=== PATIENT | female | born 1950 | race Caucasian/White ===

== ENCOUNTER → 2019-03-10 | Outpatient (CLI) | payer MEDICARE, OTHER ==
--- NOTE | 2019-03-11 11:04 | CRLCT ---
INDICATION: Left-sided pulmonary nodule and COPD. TECHNIQUE: Noncontrast 3 mm axial imaging has been performed through the chest without contrast. Sagittal and coronal reconstructions have been obtained. FINDINGS: Soft tissue windows demonstrate mildly prominent right paratracheal lymph node with a fatty hilum. This is seen on image #41, series 2. This measures 1.5 x 0.8 cm. No other significant prominent lymph nodes are noted. Hilar regions appear within normal limits by noncontrast technique. Trace amount of pericardial fluid noted. No significant pleural fluid is seen. Axillary regions demonstrate small lymph nodes without significant lymphadenopathy. Lung windows demonstrate mild to moderate emphysematous changes superiorly. Irregular nodular density with spiculation and retraction of the major fissure is identified in the posterior left upper lobe. This is best seen on image #43, series 3 and image 44, series 4. This is suspicious for a early lung cancer. This measures 9 x 11 mm. 4 mm pulmonary nodule anteriorly on the right is identified in the right upper lobe. Other scattered tiny pulmonary nodules are noted. No acute infiltrate is seen. There is a area of ill-defined ground-glass density measuring 5-6 millimeters in the right middle lobe on image number 53, series 3 and image 80 series 7. Upper abdomen demonstrates postsurgical change from cholecystectomy. IMPRESSION: 1. Irregular 1 cm spiculated nodule posterior left upper lobe suspicious for early primary lung cancer. There is some tenting of the adjacent major fissure. Recommend biopsy and/or PET-CT for further assessment. 2. Mildly prominent right paratracheal lymph node noted. 3. Other small pulmonary nodules identified up to 4 mm in the right upper lobe. 4. 5-6 millimeter early ground-glass density right middle lobe. This should be followed by CT. 5. Emphysematous changes noted. No acute infiltrate is seen. Dictated by Lane Arellano MD @ 03/11/2019 11:03:27 AM Please note that all CT scans at this facility use dose modulation, iterative reconstruction, and/or weight-based dosing when appropriate to reduce radiation dose to as low as reasonably achievable. Dictated by: Lane Arellano MD @ 03/11/2019 11:03:34 (Electronically Signed)
== END | disposition home or self-care (01) ==
LOC: JP.CT 10:43
PROVIDERS: ATTEND Nurse Practitioner Family
DX: R91.1 Solitary pulmonary nodule (principal); R59.0 Localized enlarged lymph nodes; R91.8 Other nonspecific abnormal finding of lung field; J44.9 Chronic obstructive pulmonary disease, unspecified
CPT/HCPCS: 71250

== ENCOUNTER 2021-08-22 07:02 | Day surgery (SDC) | payer MEDICARE, OTHER ==
[2021-08-22] MEDS ORDERED: Propofol 200 MG/20 ML SDV ONE (07:27)
[2021-08-22] MEDS ORDERED: fentaNYL 100 MCG/2 ML SDV ONE (07:27)
[2021-08-22] MEDS ORDERED: Midazolam 1 MG/ML 2 ML SDV ONE (07:27)
[2021-08-22] MEDS ORDERED: Sodium Chloride 0.9% 1,000 ML IV SCH (07:30)
[2021-08-22 10:43] VITALS: BP 130/48; PULSE 78
--- NOTE | 2021-08-23 08:22 | OR ---
DATE OF PROCEDURE: 08/22/2021 SURGEON: Obed Pavon MD PROCEDURE: Colonoscopy. FINDINGS: 1. Sigmoid colon polyp, approximately 5 mm, completely removed using cold biopsy forceps. 2. Rectal polyp, approximately 5 mm, completely removed using cold biopsy forceps. COMPLICATIONS: None. FLOOR STEWARD/STEWARDESS: None. ANESTHESIA: MAC. PREOPERATIVE DIAGNOSIS: Screening colonoscopy. POSTOPERATIVE DIAGNOSIS: Screening colonoscopy. RISKS: Risks, benefits, alternatives, and limitations including, but not limited to infection, bleeding, perforation, false positives and false negatives were explained to the patient who wished to proceed. PROCEDURE IN DETAIL: The patient was placed in left lateral decubitus position. Digital rectal exam was performed without abnormality. Scope was introduced and advanced atraumatically to the ileocecal valve. A photo was taken of the appendiceal orifice. Scope was brought back to the ascending, transverse, descending colon, and retroflexed. No evidence of old or new blood. No masses. No diverticulosis. The aforementioned polyps were all identified and completely removed. No abnormalities on retroflexion. Greater than 8 minutes was spent removing the scope. The prep was moderately acceptable, approximately 85% to 90% of the luminal surface could be seen. Obed Pavon MD /[id number]
== END 2021-08-22 10:51 | disposition home or self-care (01) ==
LOC: JP.SDS 07:02
PROVIDERS: ATTEND Surgery
DX: Z12.11 Encounter for screening for malignant neoplasm of colon (principal); K63.5 Polyp of colon; K62.1 Rectal polyp; J44.9 Chronic obstructive pulmonary disease, unspecified; I10 Essential (primary) hypertension; F17.200 Nicotine dependence, unspecified, uncomplicated
CPT/HCPCS: 45380; 88305; J2250; J2704; J3010; J7030

== ENCOUNTER 2022-11-07 17:17 | Inpatient (IN) | payer MEDICARE, OTHER ==
[2022-11-07] MEDS ORDERED: Sodium Chloride 0.9% 10 ML Syringe FLUSH PRN (17:44)
[2022-11-07] MEDS ORDERED: Albuterol/Ipratropium 3.0-0.5 MG/3 ML Neb Soln NEB ONE (17:45)
[2022-11-07] MEDS ORDERED: methylPREDNISolone Sodium Succinate 125 MG/2 ML SDV IVPUSH ONE (17:45)
[2022-11-07] MEDS ORDERED: diphenhydrAMINE 50 MG/ML SDV IVPUSH ONE (18:11)
[2022-11-07] MEDS ORDERED: Acetaminophen 500 MG Tab PO ONE (18:18)
[2022-11-07 18:30] LABS: CORONAVIRUS COVID-19 NAA NEGATIVE (NEGATIVE)
[2022-11-07] MEDS ORDERED: Doxycycline 100 MG in Sodium Chloride 0.9% 100 ML IV ONE (19:18)
[2022-11-07] MEDS ORDERED: Ondansetron 4 MG Tab.DIS PO PRN (21:24)
[2022-11-07] MEDS ORDERED: Magnesium Hydroxide 400 MG/5 ML Susp 30 ML Cup PO PRN (21:24)
[2022-11-07] MEDS ORDERED: Albuterol 0.083% 2.5 MG/3 ML Neb Soln NEB PRN (21:24)
[2022-11-07] MEDS ORDERED: Ondansetron 4 MG/2 ML SDV IV PRN (21:24)
[2022-11-07] MEDS ORDERED: Melatonin 3 MG Tab PO PRN (21:24)
[2022-11-07] MEDS ORDERED: Nicotine 21 MG/24 Hr Patch TRDERM PRN (21:24)
[2022-11-07] MEDS: Albuterol/Ipratropium 3.0-0.5 MG/3 ML Neb Soln NEB SCH (21:45)
[2022-11-07] MEDS ORDERED: Montelukast 10 MG Tab PO SCH (22:00)
[2022-11-07] MEDS ORDERED: Lisinopril 10 MG Tab PO SCH (22:00)
[2022-11-07] MEDS ORDERED: Aspirin 81 MG Tab.EC PO SCH (22:00)
[2022-11-07] MEDS: atorvaSTATin 20 MG Tab PO SCH (22:03)
[2022-11-08 05:03] LABS: ESTIMATED GFR 92 mL/min (>60)
[2022-11-08] MEDS: Albuterol/Ipratropium 3.0-0.5 MG/3 ML Neb Soln NEB SCH ×4 (07:15→20:22)
[2022-11-08] MEDS: Enoxaparin 40 MG/0.4 ML Syringe SUBCUT SCH (08:38)
[2022-11-08] MEDS: Loratadine 10 MG Tab PO SCH (08:38)
[2022-11-08] MEDS ORDERED: Doxycycline 100 MG in Sodium Chloride 0.9% 100 ML IV SCH (09:00)
[2022-11-08] MEDS ORDERED: predniSONE 20 MG Tab PO ONE (09:45)
[2022-11-08] MEDS: diphenhydrAMINE 25 MG Cap PO PRN ×2 (14:36→19:12)
[2022-11-08] MEDS: TRELEGY ELLIPTA INH SCH (17:01)
[2022-11-08] MEDS: Aspirin 81 MG Tab.EC PO SCH (20:22)
[2022-11-08] MEDS: Doxycycline 100 MG Cap PO SCH (20:22)
[2022-11-08] MEDS: Montelukast 10 MG Tab PO SCH (20:22)
[2022-11-08] MEDS: atorvaSTATin 20 MG Tab PO SCH (20:22)
[2022-11-08] MEDS: Lisinopril 10 MG Tab PO SCH (22:37)
[2022-11-09] MEDS: Acetaminophen 325 MG Tab PO PRN ×3 (03:12→20:21)
[2022-11-09] MEDS: Albuterol/Ipratropium 3.0-0.5 MG/3 ML Neb Soln NEB SCH ×4 (07:16→20:13)
[2022-11-09] MEDS ORDERED: predniSONE 20 MG Tab PO SCH (08:00)
[2022-11-09] MEDS: Enoxaparin 40 MG/0.4 ML Syringe SUBCUT SCH (08:32)
[2022-11-09] MEDS: Loratadine 10 MG Tab PO SCH (08:32)
[2022-11-09] MEDS: TRELEGY ELLIPTA INH SCH ×2 (08:33→15:34)
[2022-11-09] MEDS: Doxycycline 100 MG Cap PO SCH ×2 (08:36→20:20)
[2022-11-09] MEDS ORDERED: Doxycycline 100 MG in Sodium Chloride 0.9% 100 ML IV SCH (09:00)
[2022-11-09] MEDS: Montelukast 10 MG Tab PO SCH (20:20)
[2022-11-09] MEDS: Lisinopril 10 MG Tab PO SCH (20:21)
[2022-11-09] MEDS: Aspirin 81 MG Tab.EC PO SCH (20:21)
[2022-11-09] MEDS: atorvaSTATin 20 MG Tab PO SCH (20:22)
[2022-11-10] MEDS: diphenhydrAMINE 25 MG Cap PO PRN ×3 (04:35→23:33)
[2022-11-10] MEDS: TRELEGY ELLIPTA INH SCH (07:05)
[2022-11-10] MEDS: Albuterol/Ipratropium 3.0-0.5 MG/3 ML Neb Soln NEB SCH ×4 (07:05→20:52)
[2022-11-10] MEDS: Doxycycline 100 MG Cap PO SCH ×2 (08:51→20:54)
[2022-11-10] MEDS: Loratadine 10 MG Tab PO SCH (08:51)
[2022-11-10] MEDS: Enoxaparin 40 MG/0.4 ML Syringe SUBCUT SCH (08:52)
[2022-11-10] MEDS: Meropenem 1 GM in Sodium Chloride 0.9% 100 ML IV SCH ×2 (14:37→23:33)
[2022-11-10] MEDS: Acetaminophen 325 MG Tab PO PRN (16:50)
[2022-11-10] MEDS: Lisinopril 10 MG Tab PO SCH (20:53)
[2022-11-10] MEDS: atorvaSTATin 20 MG Tab PO SCH (20:53)
[2022-11-10] MEDS: Aspirin 81 MG Tab.EC PO SCH (20:53)
[2022-11-10] MEDS: Montelukast 10 MG Tab PO SCH (20:54)
[2022-11-11] MEDS: Meropenem 1 GM in Sodium Chloride 0.9% 100 ML IV SCH (06:17)
[2022-11-11] MEDS: Albuterol/Ipratropium 3.0-0.5 MG/3 ML Neb Soln NEB SCH ×4 (07:05→21:35)
[2022-11-11] MEDS: TRELEGY ELLIPTA INH SCH (07:05)
[2022-11-11] MEDS: Doxycycline 100 MG Cap PO SCH ×2 (08:23→21:38)
[2022-11-11] MEDS: Loratadine 10 MG Tab PO SCH (08:24)
[2022-11-11] MEDS: Enoxaparin 40 MG/0.4 ML Syringe SUBCUT SCH (08:24)
[2022-11-11 11:21] LABS: CORONAVIRUS COVID-19 NAA NEGATIVE (NEGATIVE)
[2022-11-11] MEDS: atorvaSTATin 20 MG Tab PO SCH (21:36)
[2022-11-11] MEDS: Aspirin 81 MG Tab.EC PO SCH (21:36)
[2022-11-11] MEDS: Montelukast 10 MG Tab PO SCH (21:36)
[2022-11-11] MEDS: Lisinopril 10 MG Tab PO SCH (21:37)
[2022-11-11] MEDS: diphenhydrAMINE 25 MG Cap PO PRN (21:44)
[2022-11-12] MEDS: Albuterol/Ipratropium 3.0-0.5 MG/3 ML Neb Soln NEB SCH ×2 (07:24→11:09)
[2022-11-12] MEDS: TRELEGY ELLIPTA INH SCH (07:24)
[2022-11-12] MEDS: Doxycycline 100 MG Cap PO SCH (08:14)
[2022-11-12] MEDS: Loratadine 10 MG Tab PO SCH (08:14)
[2022-11-12] MEDS: Enoxaparin 40 MG/0.4 ML Syringe SUBCUT SCH (08:14)
[2022-11-12 10:39] VITALS: BP 124/54; PULSE 82
== END 2022-11-12 13:25 | disposition home or self-care (01) | DRG 190 ==
LOC: JP.ED 17:17 → JP.MS 19:59
PROVIDERS: ADMIT Internal Medicine; ATTEND Hospitalist
DX: J18.9 Pneumonia, unspecified organism (principal); J44.0 Chronic obstructive pulmonary disease with (acute) lower respiratory infection; R09.02 Hypoxemia; R53.1 Weakness; H01.111 Allergic dermatitis of right upper eyelid; J10.00 Influenza due to other identified influenza virus with unspecified type of pneumonia; Z20.822 Contact with and (suspected) exposure to COVID-19; J44.1 Chronic obstructive pulmonary disease with (acute) exacerbation; I10 Essential (primary) hypertension; E78.5 Hyperlipidemia, unspecified; Z90.81 Acquired absence of spleen; H54.7 Unspecified visual loss; E78.00 Pure hypercholesterolemia, unspecified; M19.90 Unspecified osteoarthritis, unspecified site; T38.0X5A Adverse effect of glucocorticoids and synthetic analogues, initial encounter; Z66 Do not resuscitate; F17.210 Nicotine dependence, cigarettes, uncomplicated; H01.113 Allergic dermatitis of right eye, unspecified eyelid; Z79.82 Long term (current) use of aspirin; Z88.1 Allergy status to other antibiotic agents; Z79.899 Other long term (current) drug therapy; Z88.5 Allergy status to narcotic agent; Z91.040 Latex allergy status; Z91.013 Allergy to seafood; Z88.0 Allergy status to penicillin; Z86.010 Personal history of colon polyps; Z86.19 Personal history of other infectious and parasitic diseases; Z90.49 Acquired absence of other specified parts of digestive tract
CPT/HCPCS: 0241U; 36415; 71045; 71045-26; 80048; 84145; 85025; 85027; 86140; 94640; 96365; 96375; 97161-GP; 99222; 99232; 99238; 99285; 99285-25; A9270-GY; J1200; J1650; J2185; J2930; J3490; J7512; J7620

== ENCOUNTER 2023-01-20 09:19 | Emergency (ER) | payer MEDICARE, OTHER ==
[2023-01-20 09:42] VITALS: BP 130/73; PULSE 87
== END 2023-01-20 12:10 | disposition home or self-care (01) ==
LOC: JP.ED 09:19
DX: L50.9 Urticaria, unspecified (principal); I10 Essential (primary) hypertension; E78.00 Pure hypercholesterolemia, unspecified; J44.9 Chronic obstructive pulmonary disease, unspecified; M19.90 Unspecified osteoarthritis, unspecified site; Z88.1 Allergy status to other antibiotic agents; Z88.5 Allergy status to narcotic agent; Z88.8 Allergy status to other drugs, medicaments and biological substances; Z91.040 Latex allergy status; Z91.048 Other nonmedicinal substance allergy status; Z88.0 Allergy status to penicillin; Z91.013 Allergy to seafood; Z87.891 Personal history of nicotine dependence; Z91.041 Radiographic dye allergy status; Z79.82 Long term (current) use of aspirin; Z79.899 Other long term (current) drug therapy
CPT/HCPCS: 99284

== ENCOUNTER 2023-05-28 08:16 | Day surgery (SDC) | payer MEDICARE, OTHER ==
[~2023-05-28 08:16] MED LIST: Bupivacaine 0.5% 50 ML MDV ONE; Clindamycin Phosphate in D5W 900 MG in Premix Bag 1 BAG IV ONE; Lidocaine 1% with EPINEPHrine 1:100,000 50 ML MDV ONE; Midazolam 1 MG/ML 2 ML SDV ONE; Propofol 200 MG/20 ML SDV ONE; fentaNYL 100 MCG/2 ML SDV ONE
[2023-05-28] MEDS ORDERED: Dextrose 5%-Lactated Ringers 1,000 ML IV SCH (08:45)
[2023-05-28] MEDS ORDERED: Linezolid 600 MG/300 ML Premix Bag IRR ONE (09:41)
[2023-05-28 11:06] VITALS: BP 131/50; PULSE 73
== END 2023-05-28 11:30 | disposition home or self-care (01) ==
LOC: JP.SDS 08:16
PROVIDERS: ATTEND Surgery
DX: C80.1 Malignant (primary) neoplasm, unspecified (principal); C79.51 Secondary malignant neoplasm of bone; J44.9 Chronic obstructive pulmonary disease, unspecified; E78.00 Pure hypercholesterolemia, unspecified; F17.200 Nicotine dependence, unspecified, uncomplicated; Z88.0 Allergy status to penicillin; Z88.5 Allergy status to narcotic agent; Z88.8 Allergy status to other drugs, medicaments and biological substances; Z91.040 Latex allergy status; Z91.013 Allergy to seafood
CPT/HCPCS: C1788; J1642; J2020; J2250; J2704; J3010; J3490; J7121

== ENCOUNTER 2023-10-20 17:30 | Emergency (ER) | payer MEDICARE, OTHER ==
[2023-10-20 17:54] VITALS: BP 134/64; PULSE 112
[2023-10-20 18:56] LABS: BASOPHILS PERCENT AUTO 0.2 % (0.1-1.3); EOSINOPHILS ABSOLUTE AUTO 0.12 K/uL (0.00-0.40); EOSINOPHILS PERCENT AUTO 1.1 % (0.0-5.4); HEMATOCRIT 26.6 % (34.3-46.0); HEMOGLOBIN 8.4 g/dL (11.2-15.5); IMMATURE GRAN ABSOLUTE AUTO 0.07 K/uL (0.00-0.23); IMMATURE GRAN PERCENT AUTO 0.6 % (0.0-0.7); LYMPHOCYTES ABSOLUTE AUTO 1.55 K/uL (0.8-3.3); LYMPHOCYTES PERCENT AUTO 14.2 % (11.4-47.7); MEAN CORPUSCULAR HEMOGLOBIN 31.1 pg (31.6-35.5); MEAN CORPUSCULAR HGB CONC 31.6 g/dL (31.6-35.5); MEAN CORPUSCULAR VOLUME 98.5 fL (81.4-99.0); MONOCYTES ABSOLUTE AUTO 1.69 K/uL (0.20-0.90); MONOCYTES PERCENT AUTO 15.5 % (3.3-12.6); NEUTROPHILS ABSOLUTE AUTO 7.46 K/uL (1.0-7.6); NEUTROPHILS PERCENT AUTO 68.4 % (40.0-78.1); PLATELET COUNT,PLT 338 K/uL (130-375); WHITE BLOOD CELL COUNT,WBC 10.9 K/uL (3.2-11.0)
[2023-10-20 18:58] LABS: BASOPHILS ABSOLUTE AUTO 0.02 K/uL (0.00-0.10)
[2023-10-20 19:19] LABS: C-REACTIVE PROTEIN 5.71 mg/dL (<0.50); CALCIUM 8.1 mg/dL (8.5-10.1); CREATININE 1.3 mg/dL (0.6-1.0); EST CRCL DRUG DOSING (CG) 31.74 mL/min; POTASSIUM,K 3.1 mmol/L (3.6-5.2)
[2023-10-20 19:21] LABS: ANION GAP 9.1 mmol/L (5.0-14.0)
[2023-10-20 19:36] LABS: APPEARANCE,URINE CLEAR (CLEAR); BILIRUBIN,URINE NEGATIVE (NEGATIVE); COLOR,URINE YELLOW (YELLOW); GLUCOSE,URINE NEGATIVE (NEGATIVE); KETONES,URINE NEGATIVE (NEGATIVE); LEUKOCYTE ESTERASE,URINE NEGATIVE (NEGATIVE); NITRITE,URINE NEGATIVE (NEGATIVE); OCCULT BLOOD,URINE NEGATIVE (NEGATIVE); PROTEIN,URINE 100 mg/dL (NEGATIVE); UROBILINOGEN,URINE 0.2 EU/dL (0.2-1.0)
[2023-10-20 19:43] LABS: AMORPHOUS SEDIMENT,URINE NOT SEEN; BACTERIA,URINE FEW; EPITHELIAL CELLS,URINE RARE; MUCUS,URINE RARE; RBC,URINE 0-5 (0-5)
[2023-10-20 19:51] LABS: INFLUENZA A NAA NEGATIVE (NEGATIVE); INFLUENZA B NAA NEGATIVE (NEGATIVE); RESPIRATORY SYNCYTIAL VIR NAA NEGATIVE (NEGATIVE)
[2023-10-20 19:55] LABS: CORONAVIRUS COVID-19 NAA POSITIVE (NEGATIVE)
[2023-10-20] MEDS ORDERED: Potassium Chloride 20 MEQ Tab.ER PO ONE (19:58)
== END 2023-10-20 20:44 | disposition home or self-care (01) ==
LOC: JP.ED 17:30
DX: U07.1 COVID-19 (principal); Z20.822 Contact with and (suspected) exposure to COVID-19; F17.210 Nicotine dependence, cigarettes, uncomplicated; E78.00 Pure hypercholesterolemia, unspecified; I10 Essential (primary) hypertension; J45.909 Unspecified asthma, uncomplicated; Z91.040 Latex allergy status; Z88.0 Allergy status to penicillin; Z91.013 Allergy to seafood
CPT/HCPCS: 0241U; 36415; 71045; 80048; 81001; 83605; 85025; 86140; 99283; A9270

== ENCOUNTER 2024-04-18 18:55 | Emergency (ER) | payer MEDICARE, OTHER ==
[2024-04-18 19:43] LABS: HEMOGLOBIN 11.5 g/dL (11.2-15.5); MEAN CORPUSCULAR HGB CONC 32.9 g/dL (31.6-35.5); MEAN CORPUSCULAR VOLUME 91.4 fL (81.4-99.0); PLATELET COUNT,PLT 296 K/uL (130-375); RED BLOOD CELL COUNT 3.83 M/uL (3.77-5.24); WHITE BLOOD CELL COUNT,WBC 12.7 K/uL (3.2-11.0)
[2024-04-18 19:58] LABS: A/G RATIO 0.7 (1.2-2.2); ALANINE AMINOTRANSFERASE,ALT 17 U/L (12-78); ALBUMIN 2.8 g/dL (3.4-5.0); ALKALINE PHOSPHATASE 214 U/L (46-116); ASPARTATE AMNIOTRANSFERASE,AST 34 U/L (15-37); BILIRUBIN TOTAL 0.4 mg/dL (0.2-1.0); BLOOD UREA NITROGEN,BUN 22 mg/dL (7-18); CALCIUM 10.2 mg/dL (8.5-10.1); CARBON DIOXIDE,CO2 33 mmol/L (21-32); CHLORIDE,CL 98 mmol/L (100-108); CREATININE 1.2 mg/dL (0.6-1.0); EST CRCL DRUG DOSING (CG) 31.39 mL/min; ESTIMATED GFR 48 mL/min (>60); GLUCOSE RANDOM 139 mg/dL (74-106); POTASSIUM,K 3.8 mmol/L (3.6-5.2); SODIUM,NA 136 mmol/L (140-148)
[2024-04-18 19:59] LABS: ATYPICAL LYMPHOCYTES RARE; BAND ABSOLUTE MAN 0.13 K/uL; BAND PERCENT MAN 1 % (5-11); EOSINOPHILS ABSOLUTE MAN 0.13 K/uL (0.00-0.40); EOSINOPHILS PERCENT MAN 1 % (2-4); LYMPHOCYTES ABSOLUTE MAN 2.41 K/uL (0.8-3.3); LYMPHOCYTES PERCENT MAN 19 % (24-44); MONOCYTES ABSOLUTE MAN 1.14 K/uL (0.20-0.90); MONOCYTES PERCENT MAN 9 % (2-6); NEUTROPHILS ABSOLUTE MAN 8.89 K/uL (1.0-7.6); SEG NEUTROPHILS PERCENT MAN 70 % (36-66)
[2024-04-18 20:02] LABS: ANION GAP 8.8 mmol/L (5.0-14.0)
[2024-04-18] MEDS: Sodium Chloride 0.9% 1,000 ML IV SCH (20:30)
[2024-04-19] MEDS: Albuterol/Ipratropium 3.0-0.5 MG/3 ML Neb Soln NEB ONE (00:27)
[2024-04-19] MEDS ORDERED: Albuterol 0.083% 2.5 MG/3 ML Neb Soln NEB PRN (00:57)
[2024-04-19] MEDS ORDERED: Ondansetron 4 MG Tab.DIS PO PRN (00:57)
[2024-04-19] MEDS ORDERED: Ondansetron 4 MG/2 ML SDV IV PRN (00:57)
[2024-04-19] MEDS ORDERED: Acetaminophen 325 MG Tab PO PRN (00:57)
[2024-04-19] MEDS: Sodium Chloride 0.9% 1,000 ML IV SCH (01:45)
[2024-04-19] MEDS: Pantoprazole 40 MG Vial IV SCH (02:22)
[2024-04-19 04:18] LABS: APPEARANCE,URINE CLEAR (CLEAR); BILIRUBIN,URINE NEGATIVE (NEGATIVE); COLOR,URINE YELLOW (YELLOW); GLUCOSE,URINE NEGATIVE (NEGATIVE); KETONES,URINE TRACE mg/dL (NEGATIVE); LEUKOCYTE ESTERASE,URINE TRACE (NEGATIVE); NITRITE,URINE NEGATIVE (NEGATIVE); OCCULT BLOOD,URINE NEGATIVE (NEGATIVE); PROTEIN,URINE NEGATIVE (NEGATIVE); UROBILINOGEN,URINE 0.2 EU/dL (0.2-1.0)
[2024-04-19 04:22] LABS: AMORPHOUS SEDIMENT,URINE NOT SEEN; BACTERIA,URINE FEW; EPITHELIAL CELLS,URINE FEW; MUCUS,URINE RARE; RBC,URINE 0-5 (0-5); WBC,URINE 0-5 (0-5)
[2024-04-19] MEDS ORDERED: Albuterol/Ipratropium 3.0-0.5 MG/3 ML Neb Soln NEB SCH (06:00)
[2024-04-19 06:17] LABS: HEMATOCRIT 31.1 % (34.3-46.0); MEAN CORPUSCULAR HEMOGLOBIN 29.8 pg (31.6-35.5); MEAN CORPUSCULAR HGB CONC 32.2 g/dL (31.6-35.5); MEAN CORPUSCULAR VOLUME 92.6 fL (81.4-99.0); RED BLOOD CELL COUNT 3.36 M/uL (3.77-5.24); WHITE BLOOD CELL COUNT,WBC 12.7 K/uL (3.2-11.0)
[2024-04-19 06:30] LABS: CALCIUM 9.2 mg/dL (8.5-10.1); CREATININE 0.9 mg/dL (0.6-1.0); EST CRCL DRUG DOSING (CG) 42.22 mL/min; POTASSIUM,K 3.4 mmol/L (3.6-5.2)
[2024-04-19 06:33] LABS: ANION GAP 9.4 mmol/L (5.0-14.0)
[2024-04-19] MEDS: Albuterol/Ipratropium 3.0-0.5 MG/3 ML Neb Soln NEB SCH ×2 (06:57→12:49)
[2024-04-19 11:26] VITALS: BP 145/59; PULSE 106
[2024-04-19] MEDS ORDERED: Pantoprazole 40 MG Vial IV SCH (21:00)
== END 2024-04-19 11:26 | disposition home or self-care (01) ==
LOC: JP.ED 18:55 → JP.MS 04-19 00:24
PROVIDERS: ADMIT Registered Nurse; ATTEND Internal Medicine
DX: J44.9 Chronic obstructive pulmonary disease, unspecified (principal); E86.0 Dehydration; C79.9 Secondary malignant neoplasm of unspecified site; I10 Essential (primary) hypertension; Z88.0 Allergy status to penicillin; Z91.013 Allergy to seafood; Z88.5 Allergy status to narcotic agent; Z91.010 Allergy to peanuts; Z91.09 Other allergy status, other than to drugs and biological substances; Z91.041 Radiographic dye allergy status; Z88.8 Allergy status to other drugs, medicaments and biological substances; Z79.51 Long term (current) use of inhaled steroids; Z79.899 Other long term (current) drug therapy; E78.00 Pure hypercholesterolemia, unspecified; Z90.49 Acquired absence of other specified parts of digestive tract; Z87.891 Personal history of nicotine dependence
CPT/HCPCS: 36415; 71046; 80048; 80053; 81001; 85025; 85027; 93005; 94640; 99222; 99238; C9113; J7030; 93010; 96360; 96361; 99285; 99285-25; J7620